=== PATIENT | female | born 1955 | race Asian ===

== ENCOUNTER → 2021-04-20 | Outpatient (CLI) | payer MEDICARE ==
[~2021-04-20] MED LIST: REGADENOSON 0.4 MG/5 ML SYRINGE ONE
== END | disposition home or self-care (01) ==
LOC: CFH 12:36
PROVIDERS: ATTEND Internal Medicine Cardiovascular Disease
DX: I06.1 Rheumatic aortic insufficiency (principal); I10 Essential (primary) hypertension; I45.19 Other right bundle-branch block
CPT/HCPCS: 78452; 93017; 93306; 93356; A9502; J2785